=== PATIENT | female | born 1995 | race American Indian/Alaskan Native ===

== ENCOUNTER 2017-01-04 09:40 | Emergency (ER) | payer OTHER ==
[2017-01-04 10:07] VITALS: BP 118/75; PULSE 89; RESP 16; TEMP 98.5; O2SAT 100
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
== END 2017-01-04 11:37 | disposition home or self-care (01) ==
LOC: ED 09:40
DX: M54.5 Low back pain (principal)